=== PATIENT | female | born 1955 | race Caucasian/White ===

== ENCOUNTER → 2017-09-30 | Outpatient (CLI) | payer OTHER ==
[~2017-09-30] MED LIST: ASCO500T8 PO; CHOL100012 PO; GABA-826 PO; LACT1CAP37 PO; LEVO88TA43 PO; MULT-717 PO; TEMA30CA PO; VALA500T PO
== END | disposition home or self-care (01) ==
LOC: CFH 16:17
PROVIDERS: ATTEND Registered Nurse
DX: J98.4 Other disorders of lung (principal); Z86.711 Personal history of pulmonary embolism
CPT/HCPCS: 71250

== ENCOUNTER 2018-07-15 12:46 | Outpatient (CLI) | payer OTHER | END 2018-07-15 23:59 | disposition home or self-care (01) | LOC: CFH 12:46 | PROVIDERS: ATTEND Internal Medicine | DX: N63.10 Unspecified lump in the right breast, unspecified quadrant (principal); Z98.82 Breast implant status | CPT/HCPCS: 76641; 77065; G0279 ==

== ENCOUNTER 2019-04-13 13:59 | Outpatient (CLI) | payer OTHER ==
[~2019-04-13 13:59] MED LIST changes: -VALA500T PO; +VALA500T8 PO
== END 2019-04-13 23:59 | disposition home or self-care (01) ==
LOC: RAD 13:59
PROVIDERS: ATTEND Internal Medicine
DX: Z02.9 Encounter for administrative examinations, unspecified (principal)